=== PATIENT | female | born 2000 | race Caucasian/White ===

== ENCOUNTER 2022-12-10 08:00 | Outpatient (CLI) | payer OTHER ==
[2022-12-10 16:37] LABS: BILIRUBIN,URINE NEGATIVE (NEGATIVE); GLUCOSE, URINE (UA) NEGATIVE (NEGATIVE); KETONES,URINE (UA) NEGATIVE (NEGATIVE); LEUKOCYTE ESTERASE, URINE NEGATIVE (NEGATIVE); NITRITE,URINE NEGATIVE (NEGATIVE); OCCULT BLOOD,URINE NEGATIVE (NEGATIVE); PH,URINE 5.5 PH (5.0-7.5); PROTEIN,URINE NEGATIVE (NEGATIVE); UROBILINOGEN,URINE 0.2 (NORMAL) E.U./dL (NORMAL)
[2022-12-10 16:38] LABS: CLARITY,URINE CLEAR (CLEAR)
[2022-12-10 16:50] LABS: BACTERIA,URINE Rare /HPF (None Seen); MUCUS,URINE Few Strands; RBC,URINE 0-5 /HPF (0-5); SQUAMOUS EPITHELIAL CELL,UR RARE Squamous (<= Few); WBC,URINE 0-3 /HPF (0-5)
[2022-12-10 16:53] LABS: CRYSTALS,URINE 11-25 Uric Acid /LPF
[2022-12-10 20:01] LABS: BACTERIAL VAGINOSIS DNA POSITIVE (NEGATIVE); CANDIDA GLABRATA DNA NEGATIVE (NEGATIVE); CANDIDA GROUP DNA POSITIVE (NEGATIVE); CANDIDA KRUSEI DNA NEGATIVE (NEGATIVE); TRICHOMONAS VAGINALIS DNA NEGATIVE (NEGATIVE)
== END 2022-12-10 23:59 | disposition home or self-care (01) ==
LOC: LAB.WC 08:00
PROVIDERS: ATTEND Nurse Practitioner
DX: O99.891 Other specified diseases and conditions complicating pregnancy (principal); L29.8 Other pruritus
CPT/HCPCS: 81001; 81514; 87086

== ENCOUNTER 2022-12-18 12:27 | Outpatient (CLI) | payer OTHER ==
--- NOTE | 2022-12-18 16:25 | Ultrasound Report ---
PROCEDURE: OB First Trimester w/TV INDICATIONS: POSITIVE TEST OUTSIDE/PRIOR DATING DATA: Last menstrual period (LMP): 10/22/2022. LMP-based estimated date of delivery (TU): 07/29/2023. First dating scan (date and location): 02/17/2022. Estimated date of delivery (TU) from first dating scan: 07/26/2023. TECHNIQUE: Real-time scanning was performed of the fetus and maternal pelvic organs, with image documentation. Endovaginal scanning was also performed to better visualize the fetus and maternal ovaries. COMPARISON: None. FINDINGS: Intrauterine gestational sac present. Embryo: Single live intrauterine is identified with crown-rump length measuring 2.0 cm cor responding to 8 weeks 4 days. Heart rate: 173 bpm. Other: No perigestational fluid collection. Measurement variability in dating: +/- 4 weeks by LMP, +/- 7 days by mean sac diameter (use before 6 weeks gestation if crown-rump length not able to be measured), +/- 5 days by crown-rump length (6-12 weeks gestation). Maternal organs: Ovaries demonstrate left corpus luteal cyst measuring 1.8 x 1.8 x 1.4 cm. IMPRESSION: Single live intrauterine with ultrasound gestational age of 8 weeks 4 days. Recommend follow-up imaging at 20-22 weeks for dates and anatomy. Reviewed by: Yina Murillo MD on 12/18/2022 4:23 PM PDT Approved by: Yina Murillo MD on 12/18/2022 4:23 PM PDT Station ID: [id number]
== END 2022-12-18 12:28 | disposition home or self-care (01) ==
LOC: DI 12:27
PROVIDERS: ATTEND Nurse Practitioner
DX: Z34.81 Encounter for supervision of other normal pregnancy, first trimester (principal)

== ENCOUNTER 2022-12-19 08:00 | Outpatient (CLI) | payer OTHER ==
[2022-12-19 19:47] LABS: CHLAMYDIA TRACHOMATIS DNA NEGATIVE (NEGATIVE); NEISSERIA GONORRHOEAE DNA NEGATIVE (NEGATIVE)
[2022-12-19 22:11] LABS: BACTERIAL VAGINOSIS DNA NEGATIVE (NEGATIVE)
[2022-12-19 22:12] LABS: CANDIDA GLABRATA DNA NEGATIVE (NEGATIVE); CANDIDA GROUP DNA POSITIVE (NEGATIVE); CANDIDA KRUSEI DNA NEGATIVE (NEGATIVE); TRICHOMONAS VAGINALIS DNA NEGATIVE (NEGATIVE)
== END 2022-12-19 23:59 | disposition home or self-care (01) ==
LOC: LAB.WC 08:00
PROVIDERS: ATTEND Nurse Practitioner
DX: Z34.80 Encounter for supervision of other normal pregnancy, unspecified trimester (principal)
CPT/HCPCS: 81514; 87491; 87591; 87661

== ENCOUNTER 2022-12-24 10:11 | Outpatient (CLI) | payer OTHER ==
[2022-12-24 12:31] LABS: BASOPHILS % (AUTO) 0.3 %; EOSINOPHILS # (AUTO) 0.1 10^3/uL (0.0-0.7); EOSINOPHILS % (AUTO) 0.7 %; HCT - HEMATOCRIT 40.5 % (37.0-47.0); HGB - HEMOGLOBIN 13.2 g/dL (12.0-16.0); LYMPHOCYTES # (AUTO) 2.1 10^3/uL (1.5-3.5); MEAN CORPUSCULAR HEMOGLOBIN 28.1 pg (27.0-31.0); MEAN CORPUSCULAR HGB CONC 32.6 g/dL (32.0-36.0); MEAN CORPUSCULAR VOLUME 86.4 fL (81.0-99.0); MEAN PLATELET VOLUME 10.4 fL (7.9-10.8); MONOCYTES # (AUTO) 0.5 10^3/uL (0.0-1.0); MONOCYTES % (AUTO) 5.2 %; NEUTROPHILS # (AUTO) 6.2 10^3/uL (1.5-6.6); NEUTROPHILS % (AUTO) 69.7 %; PLT - PLATELET COUNT 291 10^3/uL (130-450); RED BLOOD COUNT 4.69 10^6/uL (4.20-5.40); RED CELL DISTRIBUTION WIDTH 13.1 % (12.0-15.0); WHITE BLOOD COUNT 8.9 x10^3/uL (4.8-10.8)
[2022-12-24 12:54] LABS: THYROID STIMULATING HORMONE 0.89 uIU/mL (0.34-5.60)
[2022-12-24 14:18] LABS: ESTIMATED AVERAGE GLUCOSE 94 mg/dL (70-100); HEMOGLOBIN A1c% 4.9 % (4.27-6.07)
[2022-12-25 05:13] LABS: HCV AB Non Reactive (Non Reactive)
[2022-12-25 07:10] LABS: HBsAG SCREEN Negative (Negative); RPR Non Reactive (Non Reactive)
[2022-12-25 12:09] LABS: VARICELLA-ZOSTER AB IGG 177 index (Immune >165)
[2022-12-28 00:07] LABS: HIV SCREEN 4TH GENERATION Non Reactive (Non Reactive)
== END 2022-12-24 10:12 | disposition home or self-care (01) ==
LOC: LAB.N 10:11
PROVIDERS: ATTEND Nurse Practitioner
DX: O98.819 Other maternal infectious and parasitic diseases complicating pregnancy, unspecified trimester (principal); B37.9 Candidiasis, unspecified; Z36.89 Encounter for other specified antenatal screening; Z86.39 Personal history of other endocrine, nutritional and metabolic disease
CPT/HCPCS: 36415; 83036; 84436; 84439; 84443; 84480; 84481; 85025; 86592; 86762; 86787; 86803; 86850; 86900; 86901; 87340; 87389

== ENCOUNTER 2023-03-10 13:58 | Outpatient (CLI) | payer OTHER ==
[2023-03-10 14:50] LABS: THYROID STIMULATING HORMONE 2.17 uIU/mL (0.34-5.60)
== END 2023-03-10 13:59 | disposition home or self-care (01) ==
LOC: LAB 13:58
PROVIDERS: ATTEND Obstetrics & Gynecology
DX: Z87.898 Personal history of other specified conditions (principal)
CPT/HCPCS: 36415; 84436; 84443; 84480

== ENCOUNTER 2023-03-11 13:52 | Outpatient (CLI) | payer OTHER ==
--- NOTE | 2023-03-11 19:44 | Ultrasound Report ---
PROCEDURE: OB Anatomy Scan INDICATIONS: SUPERVISION OF OUTSIDE/PRIOR DATING DATA: Last menstrual period (LMP): 10/22/2022. LMP-based estimated date of delivery (TU): 07/29/2023. First dating scan (date and location): 12/18/2022. Estimated date of delivery (TU) from first dating scan: 07/26/2023. The below data below was generated using the clinical TU of 07/29/2023 TECHNIQUE: Real-time scanning was performed of the fetus, with image documentation and biometric measurements. Endovaginal scanning: Not performed. COMPARISON: OB ultrasound 12/18/2022 FINDINGS: General: A single living intrauterine gestation is present. Presentation: Vertex Placenta: Placental position is anterior, without previa. Amniotic fluid index: 11.4 cm, within normal limits for gestational age. heart rate: 135 beats per minute. Maternal cervical canal: 3.9 cm long; normal length is 2.5 cm or more. biometrics: Biparietal diameter: 4.7 cm, 20 weeks 2 days, 64th percentile Head circumference: 17.7 cm, 20 weeks 2 days, 53rd percentile Abdominal circumference: 15.0 cm, 20 weeks 2 days, 53rd percentile Femur length: 3.3 cm, 18 weeks 6 days, 21st percentile Estimated gestational age from initial scan: 20 weeks 0 days Composite gestational age from present scan: 20 weeks 0 days Estimated weight and percentile: 341 g, 60th percentile Measurement variability in biometric dating: +/- 10 days from 12-20 weeks gestation, +/- 2 weeks from 20-30 weeks gestation, +/- 3 weeks at 30 weeks gestation or later. Anatomic survey: Neuro: Ventricles are normal at less than 10 mm. Cisterna magna is normal at 3-11 mm. Cerebellum i s normal in size and morphology. Nuchal skin fold: Normal at less than 6 mm between 14 and 20 weeks gestational age. Face: Nose and lips, facial profile are normal. Spine: No evidence for spina bifida. Heart: 4-chambered heart is present, with normal ventricular outflow tracts. Diaphragm: Diaphragm is intact. Stomach: Left-sided stomach is present. Kidneys: No hydronephrosis. Normal is less than 5 mm in 2nd trimester, less than 7 mm in 3rd trimester. Cord: 3 vessel cord has orthotopic insertion. Bladder: Normal in size. Extremities: All 4 extremities are visualized. IMPRESSION: 1.Single live intrauterine with appropriate interval growth. 2. anatomic survey is within normal limits. Reviewed by: Myron Ferreira MD on 03/11/2023 7:43 PM PST Approved by: Myron Ferreira MD on 03/11/2023 7:43 PM PST Station ID: [id number]
== END 2023-03-11 13:53 | disposition home or self-care (01) ==
LOC: DI 13:52
PROVIDERS: ATTEND Obstetrics & Gynecology
DX: O09.892 Supervision of other high risk pregnancies, second trimester (principal); Z3A.20 20 weeks gestation of pregnancy

== ENCOUNTER 2023-03-15 10:05 | Outpatient (CLI) | payer OTHER ==
[2023-03-18 20:08] LABS: THYROGLOBULIN ANTIBODY <1.0 IU/mL (0.0-0.9); THYROID PEROXIDASE (TPO) AB <9 IU/mL (0-34)
== END 2023-03-15 10:06 | disposition home or self-care (01) ==
LOC: LAB.N 10:05
PROVIDERS: ATTEND Obstetrics & Gynecology
DX: E05.90 Thyrotoxicosis, unspecified without thyrotoxic crisis or storm (principal)
CPT/HCPCS: 36415; 86376; 86800

== ENCOUNTER 2023-04-28 07:12 | Outpatient (CLI) | payer OTHER, MEDICAID ==
[2023-04-28 08:32] LABS: HCT - HEMATOCRIT 34.7 % (37.0-47.0); MEAN CORPUSCULAR HEMOGLOBIN 28.6 pg (27.0-31.0); MEAN CORPUSCULAR HGB CONC 31.7 g/dL (32.0-36.0); MEAN CORPUSCULAR VOLUME 90.4 fL (81.0-99.0); MEAN PLATELET VOLUME 9.3 fL (7.9-10.8); RED BLOOD COUNT 3.84 10^6/uL (4.20-5.40); RED CELL DISTRIBUTION WIDTH 13.7 % (12.0-15.0); WHITE BLOOD COUNT 11.9 x10^3/uL (4.8-10.8)
== END 2023-04-28 07:13 | disposition home or self-care (01) ==
LOC: LAB 07:12
PROVIDERS: ATTEND Obstetrics & Gynecology
DX: O09.891 Supervision of other high risk pregnancies, first trimester (principal); Z36.0 Encounter for antenatal screening for chromosomal anomalies
CPT/HCPCS: 36415; 82950; 85027

== ENCOUNTER 2023-05-14 08:00 | Outpatient (CLI) | payer OTHER, MEDICAID ==
[2023-05-14 21:40] LABS: CHLAMYDIA TRACHOMATIS DNA NEGATIVE (NEGATIVE); NEISSERIA GONORRHOEAE DNA NEGATIVE (NEGATIVE); TRICHOMONAS VAGINALIS DNA NEGATIVE (NEGATIVE)
== END 2023-05-14 23:59 | disposition home or self-care (01) ==
LOC: LAB.WC 08:00
PROVIDERS: ATTEND Obstetrics & Gynecology
DX: Z11.3 Encounter for screening for infections with a predominantly sexual mode of transmission (principal)
CPT/HCPCS: 87491; 87591; 87661

== ENCOUNTER 2023-05-22 08:00 | Outpatient (CLI) | payer OTHER, MEDICAID ==
[2023-05-22 17:22] LABS: INFLUENZA A- RESP PCR PANEL NOT DETECTED; INFLUENZA B - RESP PCR PANEL NOT DETECTED; RSV- RESP PCR PANEL NOT DETECTED; SARS-CoV-2 -RESP PCR PANEL NOT DETECTED
== END 2023-05-22 23:59 | disposition home or self-care (01) ==
LOC: LAB.N 08:00
PROVIDERS: ATTEND Registered Nurse
DX: J06.9 Acute upper respiratory infection, unspecified (principal); J04.0 Acute laryngitis; R07.0 Pain in throat
CPT/HCPCS: 87070; 87637

== ENCOUNTER 2023-06-03 23:12 | Outpatient (CLI) | payer OTHER, MEDICAID ==
[2023-06-03 23:36] VITALS: BP 117/69
[2023-06-04 00:18] LABS: BILIRUBIN,URINE NEGATIVE (NEGATIVE); GLUCOSE, URINE (UA) NEGATIVE (NEGATIVE); KETONES,URINE (UA) TRACE mg/dL (NEGATIVE); LEUKOCYTE ESTERASE, URINE NEGATIVE (NEGATIVE); NITRITE,URINE NEGATIVE (NEGATIVE); OCCULT BLOOD,URINE NEGATIVE (NEGATIVE); PH,URINE 5.5 PH (5.0-7.5); PROTEIN,URINE NEGATIVE (NEGATIVE); UROBILINOGEN,URINE 0.2 (NORMAL) E.U./dL (NORMAL)
[2023-06-04 00:24] LABS: CLARITY,URINE CLEAR (CLEAR)
[2023-06-04 00:31] LABS: BACTERIA,URINE Few /HPF (None Seen); MUCUS,URINE Few Strands; RBC,URINE 0-5 /HPF (0-5); SQUAMOUS EPITHELIAL CELL,UR MANY Squamous (<= Few); WBC,URINE 0-3 /HPF (0-5)
--- NOTE | 2023-06-04 00:38 | PROVIDER PROGRESS NOTE ---
- HPI Chief Complaint: Labor Current : 22 yo with second child. first baby just turned one this week. 32 weeks. presents with 3 days of diarrhea, contractions at home that were very frequent. they have slowed down now that she has been here. [place] was told to come in. She wonders if she is dehydrated. last week she was seen in urgent care for laryngitis. no gi sx then. increased her sertraline dose from 100 to 150 yesterday. had contractions with her first child at 34 weeks. delivered at 37 weeks, induced for presumed cholestasis but bile acids were normal. Vital Signs Temperature 98.2 F 06/03/23 23:28 Heart Rate 85 06/03/23 23:28 Respiratory Rate 17 06/03/23 23:28 Blood Pressure 117/69 06/03/23 23:28 Temperature 98.2 F 06/03/23 23:28 Heart Rate 85 06/03/23 23:28 Respiratory Rate 17 06/03/23 23:28 Blood Pressure 117/69 06/03/23 23:28 O2 Saturation If not protocol: Oxygen Flow, liters/minute - Exam animated, very clear about her symptoms. abdomen not tender cervix very posterior, closed high. baby's head palpable in anterior lower uterine segment/vagina extremities not tender. - Procedures OB Procedure Performed: NST Diagnosis/Indication for NST: Other ( contractions.) NST Procedure: Reactive for of 32 weeks gestation or more. NST tracing contains at least two heart rate accelerations that are at least 15 beats per minute above the baseline rate and lasting at least 15 seconds from onset to return to baseline within a twenty minute period. Service Date of procedure: 06/04/23 Findings: reactive nst not in labor. minimal contractions on monitor. - Plan Plan: pateint not in labor. seems fine now and ready to go home. is dehydrated. encouraged to drink more water. She feels she can do this. etiology of diarrhea is unclear. no one else is sick. going about 5 times a day but only a small amount. will let us know if it gets worse.
== END 2023-06-04 00:45 | disposition home or self-care (01) ==
LOC: WFO 23:12 → FBP 23:15 → WFO 06-04 00:45
PROVIDERS: ATTEND Obstetrics & Gynecology
DX: O47.03 False labor before 37 completed weeks of gestation, third trimester (principal); O99.283 Endocrine, nutritional and metabolic diseases complicating pregnancy, third trimester; E86.0 Dehydration; O99.891 Other specified diseases and conditions complicating pregnancy; R19.7 Diarrhea, unspecified; Z3A.32 32 weeks gestation of pregnancy; Z79.899 Other long term (current) drug therapy
CPT/HCPCS: 59025; 81001; 82731; 87086; 99213

== ENCOUNTER 2023-06-18 08:48 | Observation (INO) | payer OTHER, MEDICAID ==
[2023-06-18] MEDS: LACTATED RINGERS 1,000 ML IV ONE (08:48)
[2023-06-18] MEDS ORDERED: ONDANSETRON 4 MG/2 ML VIAL IVP PRN (08:53)
[2023-06-18] MEDS: SODIUM CHLORIDE FLUSH 0.9% 10 ML SYRINGE IVP PRN (08:59)
[2023-06-18 09:11] LABS: BASOPHILS % (AUTO) 0.2 %; EOSINOPHILS # (AUTO) 0.1 10^3/uL (0.0-0.7); EOSINOPHILS % (AUTO) 0.3 %; HCT - HEMATOCRIT 35.2 % (37.0-47.0); HGB - HEMOGLOBIN 11.8 g/dL (12.0-16.0); LYMPHOCYTES # (AUTO) 2.3 10^3/uL (1.5-3.5); MEAN CORPUSCULAR HEMOGLOBIN 28.6 pg (27.0-31.0); MEAN CORPUSCULAR HGB CONC 33.5 g/dL (32.0-36.0); MEAN CORPUSCULAR VOLUME 85.4 fL (81.0-99.0); MEAN PLATELET VOLUME 10.3 fL (7.9-10.8); MONOCYTES # (AUTO) 0.8 10^3/uL (0.0-1.0); MONOCYTES % (AUTO) 5.2 %; NEUTROPHILS # (AUTO) 12.7 10^3/uL (1.5-6.6); NEUTROPHILS % (AUTO) 78.9 %; PLT - PLATELET COUNT 235 10^3/uL (130-450); RED BLOOD COUNT 4.12 10^6/uL (4.20-5.40); RED CELL DISTRIBUTION WIDTH 12.8 % (12.0-15.0); WHITE BLOOD COUNT 16.1 x10^3/uL (4.8-10.8)
[2023-06-18 09:39] LABS: ALBUMIN 3.4 g/dL (3.2-5.5); BILIRUBIN,TOTAL 0.3 mg/dL (0.2-1.0); CALCIUM 9.3 mg/dL (8.5-10.3); CREATININE 0.5 mg/dL (0.6-1.3); POTASSIUM 3.9 mmol/L (3.5-4.5); TOTAL PROTEIN 6.7 g/dL (6.4-8.9)
[2023-06-18 09:40] LABS: CALCIUM 9.3 mg/dL (8.5-10.3); MAGNESIUM 1.4 mg/dL (1.7-2.3)
[2023-06-18 11:10] LABS: BILIRUBIN,URINE NEGATIVE (NEGATIVE); GLUCOSE, URINE (UA) NEGATIVE (NEGATIVE); KETONES,URINE (UA) NEGATIVE (NEGATIVE); LEUKOCYTE ESTERASE, URINE NEGATIVE (NEGATIVE); NITRITE,URINE NEGATIVE (NEGATIVE); OCCULT BLOOD,URINE NEGATIVE (NEGATIVE); PH,URINE 7.5 PH (5.0-7.5); PROTEIN,URINE NEGATIVE (NEGATIVE); UROBILINOGEN,URINE 0.2 (NORMAL) E.U./dL (NORMAL)
[2023-06-18 11:15] LABS: CLARITY,URINE CLEAR (CLEAR)
[2023-06-18 11:24] LABS: BACTERIA,URINE Few /HPF (None Seen); RBC,URINE 0-5 /HPF (0-5); SQUAMOUS EPITHELIAL CELL,UR MOD Squamous (<= Few); WBC,URINE 0-3 /HPF (0-5)
[2023-06-18] MEDS: MAGNESIUM SULFATE 2 GRAM 2 GM/50 ML BAG IV ONE ×2 (11:47→13:00)
[2023-06-18] MEDS ORDERED: MAGNESIUM SULFATE IN WATER 20 GM/500 ML IV.SOLN IV SCH (12:00)
[2023-06-18 13:53] VITALS: BP 117/65; O2SAT 100
--- NOTE | 2023-06-18 14:48 | HISTORY & PHYSICAL EXAMINATION ---
Admit History - Visit Reason Visit Reason: Other (contractions, shivering, tachycardia, tachypnea) - : 2 Parity: 1 Premature: 0 Ectopic: 0 : 0 Care: positive: [facility] Complications This : positive: None - Other Maternal History Other Maternal History: CC: contractions, shaking, tachycardia, tachypnea. vomited once after arrival. not prior. Although some nausea at home. was angel during the night but did not feel like she was in labor. OB visit 06/11/23 HPI: Pt comes to the clinic for a follow up at 33.1 weeks. Some contractions last week that sent her to the ER but has since settled. No discharge with contractions. Still a bit of back pain and "lightning crotch." Asking for a letter for her mother in law with TU so MIL can take time off work and come help. .............................................Ana Maria Abel CMA ([facility]) June 11, 2023 10:03 AM Allergies: * GLUTEN (Critical) Medications: Meds Reviewed: Done cyclobenzaprine 5 mg tablet (cyclobenzaprine) TAKE 1- 2 TABLETS BY MOUTH THREE TIMES DAILY NEEDED FOR MUSCLE SPASM * ELECTRIC BREAST PUMP Use 1 device as directed as directed USE TO EXPRESS MILK ACCORDING TO BABY'S NEEDS Z39.1 TU 07/29/2023 sertraline 100 mg tablet (sertraline) Take 1 tablet by mouth once a day Can start with 1/2 tablet once a day an increase to 1 tablet after one week. * folic acid 28-800 mg-mcg tablet ([id number] fumarate-fa) Take 1 tablet by mouth once a day Problems: Sore throat (ICD-462) (HJF20-J85.9) Upper respiratory infection (URI), viral (ICD-465.9) (IKB63-E48.9) Laryngitis, acute (ICD-464.00) (KZK79-Z66.0) Bilateral hip joint pain (HUP84-Y10.551) Screening examination for venereal disease (ICD-V74.5) (QYS19-O12.3) Hyperthyroidism (ICD-242.90) (EIJ53-D49.90) Type O blood, Rh positive (ICD-V68.89) (AGB08-V10.40) Rubella non-immune (ICD-V49.89) (WID45-X31.9) Supervision of other high risk , first trimester (ICD-V23.89) (ICD10- O09.891) Hx of pituitary tumor (ICD-V12.29) (OAW16-G28.898) Hyperprolactinemia (ICD-253.1) (CZH21-L82.1) Past Medical History: Hyperprolactinemia- tumor diagnosed at age 16 Past Surgical History: Unremarkable Vital Signs: Patient Profile: 22 Years Old Female Height: 62.5 inches Weight: 144 pounds BMI: 26.01 BP sittin / 60 Cuff size: regular Vitals Entered By: Ana Maria SIERRA (June 11, 2023 10:04 AM) Meds Reviewed: Done Allergies Reviewed: Done Flowsheet View for Follow-up Visit Estimated weeks of gestation: 33 02/23 Weight: 144 Blood pressure: 118 / 60 Fundal height: 32.5 FHR: 130 Vaginal bleeding: no Vaginal discharge: no activity: yes Labor symptoms: no position: vertex Taking vits? Y Smoking: n/a Next visit: 2 wk Comment: Mood greatly improved on higher dose. Will continue until next visit and reassess. Letter given to patient for her mother to have leave to support her during . Encouraged to stay active in third trimester. Spending a lot of time with her son as he is learning to walk. -JAW LMP: 10/22/2022 TU by LMP: 07/29/2023 US: 12/18/2022 Final TU: 07/29/2023 ANC c/b: prior preg c/w SxS choleystasis (no increase in bile acids), was IOL 37w4d for itching that wasn't choley -- resolved with cortisone cream - Baby boy 6#9oz 1. prolactinoma - Briefly took cabergoline for < 1 month, last MRI July 2021 - prior to cabergoline, prior to being in August 2032 - no symptoms. 2. close interval - iron supplements self DC - encouraged self-care 3. 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 4. TSH wnl, T4 / T3 increased with initial labs -Normal TSH in second trimester. 5. Depression -h/o PTSD, suicide attempt at 16. Stopped counselling 2 years ago, restarted recently. -Mood precautions, plan in place if mood worsens. -Mood greatly improved with sertraline and counseling. Currently on 150mg. Pre- Weight: 135lb BMI: 24.57 Blood type: O+ Rh: Postitive Antibody: Negative CBC: PLT 291 HCT: 40.5 HGB 13.2 RUB: NON immune VZV: Immune HBsAg: Negative HepC: NR RPR/AB-EIA: NR HIV: NR PAP: normal (12/04/21 in [place])requested 02/11 GC/CT: Negative HSV: denies Genetic testing: Quad screen Normal Covid: vaccinated Flu:completed this season FAS: Placenta: Anterior without previa, 3VC, 341g, 60%. 50gm OGCT: 94 TDAP: 05/13 Breast Pump:05/13 3rd trimester H/H 11.0/34.7 PLT 201 GBS: sent today Delivery plan: Contraception:Considering partner vasectomy versus control. Unsure what she would use. Gender ID Identifies as Female P: 1 T: 1 L: 1 LMP: 10/22/2022 EDC: 07/29/2023 Height: 62.5 (05/28/2023 10:00:59 AM) Weight: 144 Weight (pre-): 135 (12/10/2022 1:31:58 PM) Chlamydia: NEGATIVE (05/14/2023 11:45:00 AM) Blood Type: O POS^O POSITIVE^L (12/24/2022 10:15:00 AM) Last Antibody Screen: NEGATIVE (12/24/2022 10:15:00 AM) Is pt sexually active? yes Chlamydia: NEGATIVE (05/14/2023 11:45:00 AM) RPR: Non Reactive (12/24/2022 10:15 - HPI Diagnosis/Indication for NST: Other ( contractions.) Current EDU 07/29/23 Gestation 34 Weeks and 1 Days 2 Para 1 Vital Signs Temperature 98.4 F 06/18/23 08:50 Heart Rate 128 H 06/18/23 08:50 Respiratory Rate 26 H 06/18/23 08:50 Blood Pressure 94/61 06/18/23 08:50 Temperature 98.2 F 06/18/23 12:40 Heart Rate 92 06/18/23 12:40 Respiratory Rate 15 06/18/23 12:40 Blood Pressure 117/65 06/18/23 12:40 O2 Saturation 100 06/18/23 12:40 If not protocol: Oxygen Flow, liters/minute - NST Procedure NST Procedure Start Date 06/18/23 Start Time 08:30 Stop Time 09:10 Vibroacoustic Stimulation Used No Patient States Movement Yes - Results and Plan Findings/Impression: Reactive for of 32 weeks gestation or more. NST tracing contains at least two heart rate accelerations that are at least 15 beats per minute above the baseline rate and lasting at least 15 seconds from onset to return to baseline within a twenty minute period. Plan: observe for resolution of contractions. Meds/Allgy - Home Medications Home Medications: Ambulatory Orders Medication Instructions Recorded Confirmed Magnesium Oxide 400 mg PO BID #180 tablet 06/18/23 - Allergies Allergies/Adverse Reactions: Allergies Allergy/AdvReac Type Severity Reaction Status Date / Time No Known Drug Allergies Allergy Verified 06/18/23 09:28 Review of Systems - Constitutional Constitutional: reports: Fatigue, Other (Shaking). denies: Fever, Chills - Gastrointestinal Gastrointestinal: denies: Constipation - Genitourinary Genitourinary: denies: Dysuria - Neurological Neurological: reports: Dizziness. denies: Headache Physical - Abdominal Exam Vital Signs: Temp Pulse Resp BP Pulse Ox O2 Flow Rate 98.2 F 92 15 117/65 100 06/18/23 12:40 06/18/23 12:40 06/18/23 12:40 06/18/23 12:40 06/18/23 12:40 Contraction Frequency (min/apart): up to q4 min Contraction Intensity: positive: Moderate Uterine Resting Tone: positive: Soft - Monitoring Strip Review: positive: Category I - Presentation Presentation: positive: Vertex - Vaginal Exam Membranes: positive: Membranes intact Dilation (in cm): 0 Effacement (%): 70 Station: positive: -3, Ballotable (not engaged. does not at all feel that vertex is engaged.) Cervical Position: positive: Posterior - Speculum Exam Speculum Exam Performed: positive: No - Other Notes Labor Progress Note/Additional Text: not in labor but contractions are painful. Plan for Labor - Plan For Labor I expect patient to be DC'd or transferred within 96 hours.: Yes Plan for Labor: admit for observation, give magnesium since it is low and also will help cont ractions. first 2 grams given and still angel so will give 2 more grams. Will also check thyroid given symptoms and her history.
[2023-06-18 15:35] LABS: THYROID STIMULATING HORMONE 1.74 uIU/mL (0.34-5.60)
[2023-06-18 16:14] LABS: BACTERIAL VAGINOSIS DNA NEGATIVE (NEGATIVE); CANDIDA GLABRATA DNA NEGATIVE (NEGATIVE); CANDIDA GROUP DNA POSITIVE (NEGATIVE); CANDIDA KRUSEI DNA NEGATIVE (NEGATIVE); TRICHOMONAS VAGINALIS DNA NEGATIVE (NEGATIVE)
[2023-06-18 16:57] LABS: CHLAMYDIA TRACHOMATIS DNA NEGATIVE (NEGATIVE); NEISSERIA GONORRHOEAE DNA NEGATIVE (NEGATIVE)
--- NOTE | 2023-06-18 21:13 | DISCHARGE SUMMARY ---
"Discharge Summary Admit Date: 06/18/23 Discharge Date: 06/18/23 Discharging Provider: Minoo Navas MD Code Status: Attempt Resuscitation Condition at Discharge: Good Discharge Disposition: 01 Home, Self Care - DIAGNOSES Admission Diagnoses: dizziness, shaking, premature contractions without labor. at 34 weeks. Discharge Diagnoses with Status of Each Condition: contractions and all other symptoms resolved. no labor. hypomagnesiumia - magnesium replaced 4 gm. - HPI History of Present Illness: pateint presents to her job today and did not feel well. tachycardia, tachypnea, shaking. some contractions. came to [facility] for evaluation. 34 weeks - CONSULTS | PROCEDURES Procedures: iv hydration. monitoring. - HOSPITAL COURSE Hospital Course: she was watched, hydrated. magnesium 2 gm and then 2 more grams given for Magnesium level of 1.4. finally contractions, shaking and all other symptoms st opped. She was discharged home. Cervix on second exam was still closed. - ALLERGIES Allergies/Adverse Reactions: Allergies Allergy/AdvReac Type Severity Reaction Status Date / Time No Known Drug Allergies Allergy Verified 06/18/23 09:28 - MEDICATIONS Home Medications: Ambulatory Orders Medication Instructions Recorded Confirmed Magnesium Oxide 400 mg PO BID #180 tablet 06/18/23 - PHYSICAL EXAM AT DISCHARGE General Appearance: positive: No acute distress Respiratory: positive: No respiratory distress Cardiovascular: positive: Regular rate & rhythm Abdomen: positive: Non-tender Skin: positive: Color nml Extremities: positive: Non-tender Neurologic/Psychiatric: positive: Oriented x3 Physical Exam Other/Comments: cervix closed, unlabored. posterior. - LABS Result Diagrams: 06/18/23 08:45 06/18/23 08:45 Other Lab Results: TSH And free T4 are normal. + yeast. no bv, gc, chlamydia. no urine infec tion. - SEPSIS Current Stage of Sepsis: Ruled out Sepsis Criteria: Recorded Heart Rate greater than 90 bpm, Recorded Respiratory Rate greater than 20, WBC count greater than 12,000 or less than 4000 - FOLLOW UP Follow Up: next week as scheduled. - TIME SPENT Time Spent in Discharge (Minutes): 45"
== END 2023-06-18 15:10 | disposition home or self-care (01) ==
LOC: WFO 08:48 → FBP 08:50 → WFO 14:33 → FBP 14:34
PROVIDERS: ADMIT Obstetrics & Gynecology; ATTEND Obstetrics & Gynecology
DX: O60.03 Preterm labor without delivery, third trimester (principal); O99.283 Endocrine, nutritional and metabolic diseases complicating pregnancy, third trimester; E83.42 Hypomagnesemia; O99.343 Other mental disorders complicating pregnancy, third trimester; F32.A Depression, unspecified; Z3A.34 34 weeks gestation of pregnancy
CPT/HCPCS: 36415; 59025; 80053; 81001; 81514; 82310; 83735; 84439; 84443; 85025; 86850; 86900; 86901; 87491; 87591; 87797; 99215; G0378; 87081; 87086; 87661

== ENCOUNTER 2023-06-23 14:33 | Outpatient (CLI) | payer OTHER, MEDICAID ==
[2023-06-23 15:44] LABS: BASOPHILS % (AUTO) 0.3 %; EOSINOPHILS # (AUTO) 0.1 10^3/uL (0.0-0.7); EOSINOPHILS % (AUTO) 0.8 %; HCT - HEMATOCRIT 33.9 % (37.0-47.0); HGB - HEMOGLOBIN 10.9 g/dL (12.0-16.0); LYMPHOCYTES # (AUTO) 2.3 10^3/uL (1.5-3.5); LYMPHOCYTES % (AUTO) 15.4 %; MEAN CORPUSCULAR HEMOGLOBIN 28.5 pg (27.0-31.0); MEAN CORPUSCULAR HGB CONC 32.2 g/dL (32.0-36.0); MEAN CORPUSCULAR VOLUME 88.5 fL (81.0-99.0); MEAN PLATELET VOLUME 9.8 fL (7.9-10.8); MONOCYTES # (AUTO) 0.9 10^3/uL (0.0-1.0); MONOCYTES % (AUTO) 5.9 %; NEUTROPHILS # (AUTO) 11.1 10^3/uL (1.5-6.6); NEUTROPHILS % (AUTO) 75.6 %; PLT - PLATELET COUNT 219 10^3/uL (130-450); RED BLOOD COUNT 3.83 10^6/uL (4.20-5.40); RED CELL DISTRIBUTION WIDTH 13.1 % (12.0-15.0); WHITE BLOOD COUNT 14.7 x10^3/uL (4.8-10.8)
[2023-06-23 15:56] LABS: ALBUMIN 3.3 g/dL (3.2-5.5); ALBUMIN/GLOBULIN RATIO 1.1 (1.0-2.2); BILIRUBIN,TOTAL 0.2 mg/dL (0.2-1.0); CALCIUM 9.3 mg/dL (8.5-10.3); CREATININE 0.5 mg/dL (0.6-1.3); POTASSIUM 4.4 mmol/L (3.5-4.5); TOTAL PROTEIN 6.3 g/dL (6.4-8.9)
[2023-06-23 16:36] LABS: FERRITIN 6.2 ng/mL (11.0-306.8)
[2023-06-23] MEDS: FERRIC GLUCONATE 125 MG in SODIUM CHLORIDE 0.9% 100ML 100 ML IV ONE (17:36)
--- NOTE | 2023-06-23 18:03 | PROVIDER PROGRESS NOTE ---
- HPI Chief Complaint: Other (22yo at 34.6w sent from office when she called not feeling well. She reports dizziness, increased heart rate, tingling in fingers. She was seen in ED for similar concerns a couple times. She was advised to take magnesium after last week's visit. Also feels occasional back pain, cramping.) Current : Vital Signs Temperature 98.4 F 06/23/23 15:01 Temperature 98.4 F 06/23/23 15:01 Heart Rate Respiratory Rate Blood Pressure O2 Saturation If not protocol: Oxygen Flow, liters/minute - Procedures OB Procedure Performed: NST Diagnosis/Indication for NST: labor NST Procedure: NST Procedure Start Time 08:30 Stop Time 09:10 EFM: 140s, moderate variability, positive 15x15 accelerations, no decelerations [place]: no contractions NST reactive/Cat 1 Performed and read 06/23/23 Service Date of procedure: 06/23/23 - Plan Plan: 22yo at 34.6w with iron deficiency anemia - NST reactive - Not in labor - She has been taking vitamins and iron supplements this . Offered iron infusion today as she has required ED evaluation for similar symptoms. Iron infusion complete today, tolerated well. - Discharge to home, follow as scheduled 06/24
== END 2023-06-23 18:50 | disposition home or self-care (01) ==
LOC: WFO 14:33 → FBP 14:34 → WFO 18:50
PROVIDERS: ATTEND Obstetrics & Gynecology
DX: O99.013 Anemia complicating pregnancy, third trimester (principal); D50.9 Iron deficiency anemia, unspecified; Z3A.34 34 weeks gestation of pregnancy; O99.891 Other specified diseases and conditions complicating pregnancy; M54.9 Dorsalgia, unspecified; R25.2 Cramp and spasm
CPT/HCPCS: 36415; 59025; 80053; 82728; 85025; 99215; J2916; 96374

== ENCOUNTER 2023-06-29 09:37 | Outpatient (CLI) | payer OTHER, MEDICAID ==
[2023-06-29 09:56] VITALS: BP 133/66
[2023-06-29 10:41] VITALS: O2SAT 98
--- NOTE | 2023-06-29 19:50 | PROVIDER PROGRESS NOTE ---
- HPI Chief Complaint: Labor Current : Current EDU 07/29/23 Gestation 35 Weeks and 5 Days 2 Para 1 Vital Signs Temperature 98.2 F 06/29/23 09:45 Heart Rate 101 H 06/29/23 09:45 Respiratory Rate 14 06/29/23 09:45 Blood Pressure 133/66 H 06/29/23 09:45 Temperature 98.2 F 06/29/23 09:50 Heart Rate 101 H 06/29/23 09:50 Respiratory Rate 14 06/29/23 09:50 Blood Pressure 133/66 H 06/29/23 09:50 O2 Saturation 98 06/29/23 09:50 If not protocol: Oxygen Flow, liters/minute - Exam abdomen not tender. no distress - Procedures OB Procedure Performed: NST Diagnosis/Indication for NST: labor NST Procedure: NST Procedure Start Date 06/29/23 Start Time 10:22 Stop Time 10:50 Vibroacoustic Stimulation Used No Patient States Movement pt states decreased FM Service Date of procedure: 06/29/23 Findings: Reactive for of less than 32 weeks gestation. NST tracing contains at least two heart rate accelerations that are at least 10 beats per minute above the baseline rate and lasting at least 10 seconds from onset to return to baseline within a twenty minute period. - Plan Plan: patient feeling. no more contractions. feeling baby moving now. discharge home. f/u as scheduled.
== END 2023-06-29 11:28 | disposition home or self-care (01) ==
LOC: WFO 09:37 → FBP 09:38 → WFO 11:28
PROVIDERS: ATTEND Obstetrics & Gynecology
DX: O36.8130 Decreased fetal movements, third trimester, not applicable or unspecified (principal); Z3A.35 35 weeks gestation of pregnancy
CPT/HCPCS: 59025; 99213

== ENCOUNTER 2023-07-04 08:00 | Outpatient (CLI) | payer OTHER, MEDICAID | END 2023-07-04 23:59 | disposition home or self-care (01) | LOC: LAB.WC 08:00 | PROVIDERS: ATTEND Obstetrics & Gynecology | DX: Z36.85 Encounter for antenatal screening for Streptococcus B (principal) | CPT/HCPCS: 87797 ==

== ENCOUNTER 2023-07-07 11:30 | Outpatient (CLI) | payer OTHER, MEDICAID ==
[2023-07-07 12:14] LABS: BASOPHILS % (AUTO) 0.3 %; EOSINOPHILS # (AUTO) 0.1 10^3/uL (0.0-0.7); EOSINOPHILS % (AUTO) 0.5 %; HCT - HEMATOCRIT 34.7 % (37.0-47.0); HGB - HEMOGLOBIN 10.9 g/dL (12.0-16.0); MEAN CORPUSCULAR HEMOGLOBIN 27.7 pg (27.0-31.0); MEAN CORPUSCULAR HGB CONC 31.4 g/dL (32.0-36.0); MEAN CORPUSCULAR VOLUME 88.3 fL (81.0-99.0); MEAN PLATELET VOLUME 10.3 fL (7.9-10.8); MONOCYTES # (AUTO) 0.8 10^3/uL (0.0-1.0); MONOCYTES % (AUTO) 6.6 %; NEUTROPHILS # (AUTO) 8.5 10^3/uL (1.5-6.6); NEUTROPHILS % (AUTO) 73.9 %; PLT - PLATELET COUNT 214 10^3/uL (130-450); RED BLOOD COUNT 3.93 10^6/uL (4.20-5.40); RED CELL DISTRIBUTION WIDTH 13.9 % (12.0-15.0); WHITE BLOOD COUNT 11.5 x10^3/uL (4.8-10.8)
[2023-07-07 12:30] LABS: CREATININE,URINE 60.2 mg/dL; PROTEIN/CREATININE RATIO,URINE 0.3 (<=0.2)
[2023-07-07 12:31] LABS: ALBUMIN 3.3 g/dL (3.2-5.5); ALBUMIN/GLOBULIN RATIO 1.1 (1.0-2.2); ALKALINE PHOSPHATASE 174 IU/L (42-121); ALT ALANINE AMINOTRANSFERASE 6 IU/L (10-60); AST ASPARTATE AMINOTRANSFERASE 11 IU/L (10-42); BILIRUBIN,TOTAL 0.3 mg/dL (0.2-1.0); BUN - BLOOD UREA NITROGEN 7 mg/dL (6-20); CALCIUM 9.6 mg/dL (8.5-10.3); CARBON DIOXIDE - CO2 23 mmol/L (21-32); CHLORIDE 109 mmol/L (101-111); CREATININE 0.7 mg/dL (0.6-1.3); GFR - MDRD 105 (>89); GLUCOSE 83 mg/dL (74-104); IONIZED CALCIUM IF INDICATED NO; POTASSIUM 4.6 mmol/L (3.5-4.5); SODIUM 136 mmol/L (135-145); TOTAL PROTEIN 6.3 g/dL (6.4-8.9)
[2023-07-07] MEDS: ONDANSETRON ODT 4 MG TABLET TL PRN (12:59)
[2023-07-07 16:44] VITALS: BP 124/71
--- NOTE | 2023-07-07 16:54 | PROVIDER PROGRESS NOTE ---
- HPI Chief Complaint: Other (Preeclampsia evaluation) Current : Current EDU 07/29/23 Gestation 36 Weeks and 6 Days 2 Para 1 Vital Signs Temperature 98.2 F 07/07/23 11:39 Heart Rate 100 07/07/23 11:39 Respiratory Rate 16 07/07/23 11:39 Blood Pressure 127/71 07/07/23 11:39 Temperature 98.2 F 07/07/23 11:39 Heart Rate 100 07/07/23 11:39 Respiratory Rate 16 07/07/23 11:39 Blood Pressure 124/71 07/07/23 16:00 O2 Saturation If not protocol: Oxygen Flow, liters/minute Skye Toro is a 22 yo at 36w6d who presents from the office for preeclampsia evaluation. She came to the offfice today for increase swelling and headache this morning. In clinic, was found to have a mild range blood pressure. Skye reports a mild headache, declines any tylenol for it. No vision changes. She has had some pain in her upper abdomen which she attributes to babies movement. Reports irregular tightening, no regular ctx. Denies lof, vb. + fm. - Exam Gen: NAD Chest: non labored respirations Abd: soft, gravid, non tender. EFW [id number] Ext: trace LE edema SVE 2/50/-2 Bedside US confirmed cephalic presentation, grossly adequate appearing amniotic fluid with DVP of 6cm. - Procedures OB Procedure Performed: NST Diagnosis/Indication for NST: Gestational Hypertension NST Procedure: NST Procedure Start Date 07/07/23 Start Time 11:41 Stop Time 12:20 Vibroacoustic Stimulation Used No Patient States Movement Yes Service Date of procedure: 07/07/23 Findings: Reactive, Category 1 - Plan Plan: A/P: 22 yo at 36w6d with elevated blood pressures, meeting criteria for gestational hypertension. She has had a mild headache for which she declines any treatment. Labs normal, no severe features of preeclampsia at present. Intermittent mildly elevated blood pressures noted in triage. I discussed with her recommendation for induction of labor at 37wk in the setting of gestational hypertension and she does agree to proceed. She will plan to return this evening to start induction of labor. Consent or induction of labor was reviewed and signed.
== END 2023-07-07 16:30 | disposition home or self-care (01) ==
LOC: WFO 11:30 → FBP 11:31 → WFO 16:30
PROVIDERS: ATTEND Obstetrics & Gynecology
DX: O14.03 Mild to moderate pre-eclampsia, third trimester (principal); Z3A.36 36 weeks gestation of pregnancy
CPT/HCPCS: 36415; 59025; 80053; 82570; 84156; 85025; 99215; Q0162

== ENCOUNTER 2023-07-07 22:59 | Inpatient (IN) | payer OTHER, MEDICAID ==
[2023-07-07] MEDS ORDERED: TRANEXAMIC ACID IN NACL 1,000 MG/100 ML BAG IV PRN (23:12)
[2023-07-07] MEDS ORDERED: miSOPROStoL 200 MCG TABLET BC PRN (23:12)
[2023-07-07] MEDS ORDERED: lidocaine 1% 20 ML MDV ID PRN (23:12)
[2023-07-07] MEDS ORDERED: METHYLERGONOVINE 0.2 MG/ML VIAL IM PRN (23:12)
[2023-07-07] MEDS ORDERED: OXYTOCIN 10 UNIT/ML VIAL IM PRN (23:12)
[2023-07-07] MEDS ORDERED: SODIUM CHLORIDE FLUSH 0.9% 10 ML SYRINGE IVP PRN (23:12)
[2023-07-07] MEDS ORDERED: CARBOPROST TROMETHAMINE 250 MCG/ML VIAL IM PRN (23:12)
[2023-07-07] MEDS ORDERED: OXYTOCIN/SODIUM CHLORIDE 500 ML IV PRN (23:12)
[2023-07-07] MEDS ORDERED: miSOPROStoL 100 MCG TABLET ONE (23:58)
[2023-07-08] MEDS: miSOPROStoL 100 MCG TABLET BC SCH
[2023-07-08] MEDS ORDERED: SODIUM CHLORIDE FLUSH 0.9% 10 ML SYRINGE IVP SCH (01:00)
--- NOTE | 2023-07-08 06:46 | HISTORY & PHYSICAL EXAMINATION ---
Admit History - Visit Reason Visit Reason: Other (Induction of labor for preeclampsia without severe features.) - : 2 Parity: 1 Premature: 0 Ectopic: 0 : 0 Care: positive: [facility] Smoking Status: Never smoker - Other Maternal History Other Maternal History: Skye Toro is a 22 yo who presents for induction of labor for preeclampsia without severe features. Allergies: Allergies Reviewed: Done * GLUTEN (Critical) Medications: Meds Reviewed: Done Clotrimazole-7 1% cream (clotrimazole) Take 1 applicatorful into vagina once a day cyclobenzaprine 5 mg tablet (cyclobenzaprine) TAKE 1- 2 TABLETS BY MOUTH THREE TIMES DAILY NEEDED FOR MUSCLE SPASM * ELECTRIC BREAST PUMP Use 1 device as directed as directed USE TO EXPRESS MILK ACCORDING TO BABY'S NEEDS Z39.1 TU 07/29/2023 sertraline 100 mg tablet (sertraline) Take 1 tablet by mouth once a day Can start with 1/2 tablet once a day an increase to 1 tablet after one week. * folic acid 28-800 mg-mcg tablet ([id number] fumarate-fa) Take 1 tablet by mouth once a day Problems: screening for streptococcus B (ICD-V28.6) (ZIZ45-S26.85) Sore throat (ICD-462) (YDV16-M08.9) Upper respiratory infection (URI), viral (ICD-465.9) (UHN54-E53.9) Laryngitis, acute (ICD-464.00) (PRD10-A34.0) Bilateral hip joint pain (ZJK12-L90.551) Screening examination for venereal disease (ICD-V74.5) (YAD89-Q63.3) Hyperthyroidism (ICD-242.90) (TJD85-D88.90) Type O blood, Rh positive (ICD-V68.89) (YVI69-S36.40) Rubella non-immune (ICD-V49.89) (KTC73-D05.9) Supervision of other high risk , first trimester (ICD-V23.89) (ICD10- O09.891) Hx of pituitary tumor (ICD-V12.29) (MYS72-C78.898) Hyperprolactinemia (ICD-253.1) (WWB51-H09.1) Past Medical History: Hyperprolactinemia- tumor diagnosed at age 16 Past Surgical History: Unremarkable Risk Factors-CCC: Smoked Tobacco Use: Never smoker Smokeless Tobacco Use: Never Vaping / e-cigarette use: Never Passive Smoke Exposure: no Alcohol Use: no Drug Use: no Marijuana Use: no LMP: 10/22/2022 TU by LMP: 07/29/2023 US: 12/18/2022 Final TU: 07/29/2023 ANC c/b: prior preg c/w SxS choleystasis (no increase in bile acids), was IOL 37w4d for itching that wasn't choley -- resolved with cortisone cream - Baby boy 6#9oz 1. prolactinoma - Briefly took cabergoline for < 1 month, last MRI July 2021 - prior to cabergoline, prior to being in August 2032 - no symptoms. 2. close interval - iron supplements self DC - encouraged self-care 3. FOB Guido (as is first son, Guido the 5th) - in the [employer], shore duty, no risk of deployment this - support system is in [place], but visit with them was more stressful than being away. 4. TSH wnl, T4 / T3 increased with initial labs -Normal TSH in second trimester. 5. Depression -h/o PTSD, suicide attempt at 16. Stopped counselling 2 years ago, restarted recently. -Mood precautions, plan in place if mood worsens. -Mood greatly improved with sertraline and counseling. Currently on 150mg. Pre- Weight: 135lb BMI: 24.57 Blood type: O+ Rh: Postitive Antibody: Negative CBC: PLT 291 HCT: 40.5 HGB 13.2 RUB: NON immune VZV: Immune HBsAg: Negative HepC: NR RPR/AB-EIA: NR HIV: NR PAP: normal (12/04/21 in [place])requested 02/11 GC/CT: Negative HSV: denies Genetic testing: Quad screen Normal Covid: vaccinated Flu:completed this season FAS: Placenta: Anterior without previa, 3VC, 341g, 60%. 50gm OGCT: 94 TDAP: 05/13 Breast Pump:05/13 3rd trimester H/H 11.0/34.7 PLT 201 GBS: neg Delivery plan: Contraception:Considering partner vasectomy versus control. Unsure what she would use. - HPI Current EDU 07/29/23 Gestation 37 Weeks and 0 Days 2 Vital Signs Temperature 98.2 F 07/07/23 23:10 Heart Rate 91 07/07/23 23:10 Respiratory Rate 17 07/07/23 23:10 Blood Pressure 131/75 H 07/07/23 23:10 O2 Saturation 99 07/07/23 23:10 Temperature 98.4 F 07/08/23 03:55 Heart Rate 80 07/08/23 03:55 Respiratory Rate 17 07/07/23 23:10 Blood Pressure 96/53 L 07/08/23 03:55 O2 Saturation 99 07/08/23 03:55 If not protocol: Oxygen Flow, liters/minute - NST Procedure NST Procedure Start Time 11:41 Stop Time 12:20 Meds/Allgy - Home Medications Home Medications: Ambulatory Orders Medication Instructions Recorded Confirmed Pnv No.95/Ferrous Fum/Folic AC 1 each PO DAILY 06/23/23 07/08/23 [ Tablet] Sertraline [Zoloft] 150 mg PO DAILY 06/23/23 07/08/23 - Allergies Allergies/Adverse Reactions: Allergies Allergy/AdvReac Type Severity Reaction Status Date / Time No Known Drug Allergies Allergy Verified 06/18/23 09:28 Physical - Abdominal Exam Vital Signs: Temp Pulse Resp BP Pulse Ox O2 Flow Rate 98.4 F 80 17 96/53 L 99 07/08/23 03:55 07/08/23 03:55 07/07/23 23:10 07/08/23 03:55 07/08/23 03:55 - Monitoring Strip Review: positive: Category I - Presentation Presentation: positive: Vertex - Vaginal Exam Dilation (in cm): 2 Effacement (%): 50 Station: positive: -2 - Speculum Exam Speculum Exam Performed: positive: No Plan for Labor - Plan For Labor I expect patient to be DC'd or transferred within 96 hours.: Yes Plan for Labor: 22 yo with: - preeclampsia without severe features - GBS neg - Close interval - Rubella non immune Plan for IOL with misoprostol. Preeclampsia labs obtained in triage yesterday and wnl (exception of pr:cr 0.3). Monitor blood pressures and may repeat labs as necessary. GBS neg. Pain management per patient request.
[2023-07-08] MEDS ORDERED: SERTRALINE 50 MG TABLET PO SCH (09:00)
[2023-07-08] MEDS ORDERED: CALCIUM CARBONATE CHEW 500 MG TABLET PO PRN (09:04)
[2023-07-08] MEDS ORDERED: LABETALOL 20 MG/4 ML SYRINGE IVP PRN ×3 (09:04)
[2023-07-08] MEDS ORDERED: diphenhydrAMINE INJ 50 MG/ML VIAL IVP PRN ×2 (09:04→21:07)
[2023-07-08] MEDS ORDERED: ONDANSETRON 4 MG/2 ML VIAL IVP PRN ×2 (09:04→21:07)
[2023-07-08] MEDS ORDERED: TERBUTALINE 1 MG/ML VIAL SUBQ PRN (09:04)
[2023-07-08] MEDS ORDERED: METOCLOPRAMIDE 10 MG/2 ML VIAL IVP PRN (09:04)
[2023-07-08] MEDS ORDERED: hydrALAZINE INJ 20 MG/ML VIAL IVP PRN ×2 (09:04)
[2023-07-08] MEDS ORDERED: fentaNYL 100 MCG/2 ML VIAL IVP PRN (09:04)
[2023-07-08] MEDS ORDERED: ACETAMINOPHEN 500 MG TABLET PO PRN (09:04)
[2023-07-08] MEDS ORDERED: NIFEdipine 10 MG CAPSULE PO PRN (09:04)
[2023-07-08] MEDS ORDERED: FAMOTIDINE 20 MG/2 ML VIAL IVP SCH (10:00)
--- NOTE | 2023-07-08 17:58 | PROVIDER PROGRESS NOTE ---
Labor Progress Note - Uterine Monitoring Uterine Monitoring Mode: positive: External toco Contraction Frequency (min/apart): 1-2.5 Contraction Intensity: positive: Moderate Uterine Resting Tone: positive: Soft - Monitoring Monitor Mode: positive: External ultrasound Heart Rate Baseline: 135 Accelerations: positive: Present, 15x15 Decelerations: positive: None Strip Review: positive: Category I - Vaginal Exam Dilation (in cm): 4 Effacement (%): 70 Station: -2 Cervical Position: Midposition - Labor Progress Note Labor Progress Note/Additional Text: Shared decision making used for options for further labor augmentation. Patient agreeable to AROM. Moderate amount of clear fluid. Pain intensified shortly after AROM and patient desires Nitrous and discusses with nursing team she will likely desiring an epidural in the next hour or so.
[2023-07-08] MEDS: LACTATED RINGERS 500 ML IV PRN (18:38)
[2023-07-08] MEDS ORDERED: ROPIVACAINE 0.2% 200 MG/100 ML BAG EP ONE (18:57)
[2023-07-08] MEDS ORDERED: LIDOCAINE 2%-EPI 1:100000 20 ML MDV ONE (18:57)
--- NOTE | 2023-07-08 19:24 | PROVIDER PROGRESS NOTE ---
Subjective - Prog Note Date Prog Note Date: 07/08/23 Prog Note Time: 19:00 - Subjective Subjective: called because they thought pateint was ready to deliver soon. using nitrous. very uncomfortable. after a few contractions, once I got ready, I checked her and still only 5 cm and posterior. after some time laboring she was about 6 cm, less posterior. I left room when SALES AND MARKETING MANAGER arrived to do epidural. will reassess when he is finished. anticipate she will deliver soon. tracing reassuring. Objective - Lab Results Other Labs: Lab Results x24hrs 07/07/23 Range/Units 23:45 Blood Type O POSITIVE Antibody Screen NEGATIVE
[2023-07-08] MEDS ORDERED: LIDOCAINE-MPF 2% 5 ML VIAL ONE (19:39)
[2023-07-08] MEDS ORDERED: GENTAMICIN IV ONE (20:09)
[2023-07-08] MEDS ORDERED: SODIUM CHLORIDE 0.9% IV ONE (20:09)
[2023-07-08] MEDS: AMPICILLIN 2 GM in SODIUM CHLORIDE 0.9% MINIBAG 100 ML IV SCH (20:28)
--- NOTE | 2023-07-08 20:41 | PROVIDER PROGRESS NOTE ---
Labor Progress Note - Uterine Monitoring Uterine Monitoring Mode: positive: External toco Contraction Frequency (min/apart): 3 Contraction Intensity: positive: Moderate to strong, Strong Uterine Resting Tone: positive: Soft - Monitoring Monitor Mode: positive: External ultrasound Heart Rate Variability: positive: Moderate (6-25 bmp) Accelerations: positive: Present, 15x15 Decelerations: positive: None Strip Review: positive: Category I - Vaginal Exam Dilation (in cm): 9 Station: 2 - Labor Progress Note Labor Progress Note/Additional Text: fever to 101. maternal and tachycardia. discussed with pateint and then with peds. start amp and gent. likely will deliver before too much effect but will see.
[2023-07-08] MEDS ORDERED: ROPIVACAINE 0.2% 200 MG/100 ML BAG EP PRN (21:07)
[2023-07-08] MEDS ORDERED: NALBUPHINE 10 MG/ML AMP IVP PRN (21:07)
--- NOTE | 2023-07-08 21:07 | ANESTHESIA ---
Pre-Anesthesia VS, & Labs - Diagnosis desires labor epidural; IOL, PRE ECLAMPSIA WITHOUT SEVERE FEATURES - Procedure PLACEMENT OF LABOR EPIDURAL Vital Signs: Temp Pulse Resp BP Pulse Ox O2 Flow Rate 36.7 C 70 16 103/53 L 96 07/08/23 07:00 07/08/23 07:00 07/08/23 07:00 07/08/23 07:00 07/08/23 07:00 Height: 5 ft 4 in Weight (kg): 69.49 kg Body Mass Index: 26.3 BMI Classification: Overweight - NPO Last Fluid Intake: CURRENTLY - Is Patient ?: Yes - Lab Results Current Lab Results: Laboratory Tests 07/07/23 23:45: Blood Type O POSITIVE, Antibody Screen NEGATIVE Lab results reviewed: Yes Home Medications and Allergies Active Medications Acetaminophen (Acetaminophen 500 Mg Tablet) 1,000 mg PO Q8H PRN PRN Reason: Mild Pain or Fever>38C(100.4F) Calcium Carbonate/Glycine (Calcium Carbonate Chew 500 Mg Tablet) 1,000 mg PO Q6HR PRN PRN Reason: Heartburn Carboprost Tromethamine (Carboprost Tromethamine 250 Mcg/Ml Vial) 250 mcg IM Q15M PRN PRN Reason: Step 4: Hemorrhage protocol Diphenhydramine HCl (Diphenhydramine Inj 50 Mg/Ml Vial) 25 mg IVP Q6H PRN PRN Reason: Allergy Symptoms Famotidine (Famotidine 20 Mg/2 Ml Vial) 20 mg IVP DAILY COTY Fentanyl (Fentanyl 100 Mcg/2 Ml Vial) 50 mcg IVP Q1H PRN PRN Reason: Severe Pain (score 7-10) Hydralazine HCl (Hydralazine Inj 20 Mg/Ml Vial) 5 - 10 mg IVP Q20M PRN; Protocol PRN Reason: SBP> or= 160 OR DBP> or= 110 Hydralazine HCl (Hydralazine Inj 20 Mg/Ml Vial) 10 mg IVP .ONCE PRN; Protocol PRN Reason: SBP> or= 160 OR DBP> or= 110 Oxytocin/Sodium Chloride (Pitocin/Sodium Chloride) 500 mls @ 999 mls/hr IV PRN PRN; Protocol PRN Reason: POST- HEMORR PREVENTION Stop: 07/12/23 23:04 Tranexamic Acid (Tranexamic 1,000 Mg/100ml-Nacl) 1,000 mg in 100 mls @ 600 mls/hr IV .ONCE PRN PRN Reason: EBL >1200mL and within 3hr Stop: 07/12/23 23:13 Lactated Ringer's (Lr) 500 mls @ 999 mls/hr IV PRN PRN PRN Reason: NEEDED PER PROVIDER ORDERS Last Infusion: 07/08/23 19:15 Dose: Infused Ampicillin Sodium 2 gm/ Sodium (Chloride) 100 mls @ 100 mls/hr IV Q6H [facility] Last Admin: 07/08/23 20:28 Dose: 100 mls/hr Gentamicin Sulfate 305 mg/ (Sodium Chloride) 107.625 mls @ 100 mls/hr IV ONCE ONE Stop: 07/08/23 21:13 Labetalol HCl (Labetalol 20 Mg/4 Ml Syringe) 20 - 80 mg IVP Q10M PRN; Protocol PRN Reason: SBP> or= 160 OR DBP> or= 110 Labetalol HCl (Labetalol 20 Mg/4 Ml Syringe) 20 mg IVP .ONCE PRN; Protocol PRN Reason: SBP> or= 160 OR DBP> or= 110 Labetalol HCl (Labetalol 20 Mg/4 Ml Syringe) 20 - 40 mg IVP Q10M PRN; Protocol PRN Reason: SBP> or= 160 OR DBP> or= 110 Lidocaine HCl (Lidocaine 1% 20 Ml Mdv) 20 ml ID .ONCE PRN PRN Reason: PERINEAL REPAIR Stop: 07/12/23 23:13 Methylergonovine Maleate (Methylergonovine 0.2 Mg/Ml Vial) 0.2 mg IM .ONCE PRN PRN Reason: Step 2: Hemorrhage protocol Stop: 07/12/23 23:13 Misoprostol (Misoprostol 200 Mcg Tablet) 800 mcg BC .ONCE PRN PRN Reason: Step 3: Hemorrhage protocol Stop: 07/12/23 23:13 Misoprostol (Misoprostol 100 Mcg Tablet) 25 mcg BC Q4HR [facility] Last Admin: 07/08/23 12:49 Dose: 25 mcg Nifedipine (Nifedipine 10 Mg Capsule) 10 - 20 mg PO Q20M PRN; Protocol PRN Reason: SBP> or= 160 OR DBP> or= 110 Ondansetron HCl (Ondansetron 4 Mg/2 Ml Vial) 4 mg IVP PRN PRN PRN Reason: Nausea / Vomiting Oxytocin (Oxytocin 10 Unit/Ml Vial) 10 unit IM .ONCE PRN PRN Reason: Step one: If no IV access Stop: 07/12/23 23:13 Multivit/Folic Acid/Iron ( Vitamin Tablet) 1 tab PO DAILY COTY Sertraline HCl (Sertraline 50 Mg Tablet) 150 mg PO DAILY COTY Sertraline HCl (Sertraline 50 Mg Tablet) 150 mg PO DAILY COTY Sodium Chloride (Sodium Chloride Flush 0.9% 10 Ml Syringe) 10 ml IVP 0100,0900,1700 COTY Sodium Chloride (Sodium Chloride Flush 0.9% 10 Ml Syringe) 10 ml IVP PRN PRN PRN Reason: NEEDED PER PROVIDER ORDERS Terbutaline Sulfate (Terbutaline 1 Mg/Ml Vial) 0.25 mg SUBQ .ONCE PRN PRN Reason: Tachystole Pnv No.95/Ferrous Fum/Folic AC [ Tablet] 1 each PO DAILY 06/23/23 Sertraline [Zoloft] 150 mg PO DAILY 06/23/23 Allergies/Adverse Reactions: Allergies Allergy/AdvReac Type Severity Reaction Status Date / Time No Known Drug Allergies Allergy Verified 06/18/23 09:28 Anes History & Medical History - Anesthetic History Anesthesia Complications: reports: No previous complications Family history of Anesthesia Complications: Denies - Medical History Cardiovascular: reports: None Pulmonary: reports: None Gastrointestinal: reports: None Urinary: reports: None Neuro: reports: None Smoking Status: Never smoker Psychosocial: reports: No issues indicated - Obstetrical History : 2 Parity: 1 Exam General: Alert, Moderate distress Dental: WNL Mouth Openin Fingerbreadth Neck Mobility: Normal Mallampati classification: II Thyromental Distance: less than 4 cm Plan Anesthesia Type: Epidural Consent for Procedure(s) Verified and Reviewed: Yes Code Status: Attempt Resuscitation ASA classification: 2-Mild systemic disease Is this case an emergency?: No
[2023-07-08] MEDS: ACETAMINOPHEN 500 MG TABLET PO SCH (22:27)
[2023-07-08] MEDS: IBUPROFEN 600 MG TABLET PO SCH (22:28)
[2023-07-08] MEDS: SERTRALINE 50 MG TABLET PO SCH (22:29)
--- NOTE | 2023-07-08 23:46 | DELIVERY NOTE ---
Delivery Note - Labor Labor: positive: Augmented by ARM - Infant Delivery Method Delivery Method: positive: Spontaneous vaginal delivery - Cervical Ripening Method Cervical Ripening Method: positive: Misoprostil - Presentation Presentation: positive: Vertex, STACY - left occiput anterior - Nuchal Cord Nuchal Cord: positive: Present - Amniotic Fluid Description Amniotic Fluid Description: positive: Clear - Episiotomy Type Episiotomy Type: positive: None - Laceration Laceration: positive: 1st degree, Perineal - Suture Suture Type: positive: Vicryl Suture Size: positive: 3-0 - Delivery Outcome Delivery Outcome: positive: Livebirth - [place]: positive: Placed in direct skin contact with mother, Bulb syringe, Stimulated, [place] used [place] sex: positive: Female - Cord Cord: positive: 3 vessels - Placenta Placenta: positive: Intact - Estimated Blood Loss Estimated Blood Loss (in cc): 200 - Post Delivery Events Post Delivery Events: positive: No post delivery events - Delivery Comments (Free Text/Narrative) Delivery Comments (Free Text/Narrative): This 22 year old, , @ 37 weeks gestation by LMP and confirmed by first trimester ultrasound presented to L&D @ 0000 on 07/07/2022 for medical induction of labor for preeclampsia without severe features. Cervix was 2/50/-2 and confirmed vertex. FHR pattern demonstrated 140 baseline in a category 1 pattern. Total doses of 25mcg misoprostol x4. Normal labor course. AROM @ 1714 and a moderate amount of clear fluid noted. Epidural placed upon maternal request. Labor T-max 38.4 with associated elevation maternal (110's) and heart rates (160's). Chorioamnioonitis diagnosed and IV antibiotics therapy initiated. Ampililin 2g infused prior to delivery. Patient progressed to complete/complete @ 2105. : Normal SVB of a 2968gm female on 07/08/23 @ 2117. Nuchal cord x1. The was placed on maternal abdomen, stimulated, dried and placed skin to skin. Apgars 8 @ 1 min and 9 @ 5 min. Pitocin administered via IV for hemostasis. The umbilical cord was allowed to stop pulsating at which time it was doubly clamped by SNM and cut by FOB. 3VC. Cord blood was obtained. Fundal massage and gentle cord traction applied for active management of the third stage. Placenta delivered spontaneously and intact @ 2125. EBL 200cc. Fourth stage: Uterine fundus firm and there is no excessive bleeding. The perineum, vagina, and cervix were inspected. 1st degree perineal laceration re paired in standard fashion under sterile conditions with 3-0 rapide. Vaginal and rectal examination following repair. Tissues well approximated. Skin to skin and initiated. Family boding well. Both mother and baby are in stable condition.
--- NOTE | 2023-07-09 11:22 | PHARMACY PROGRESS NOTE ---
- Best Possible Medication History Admit Date and Time: 07/08/23 1738 Processed by: Pharmacy Medications reviewed in ED?: No Medication History completed: Yes Patient Interview: Completed As the person ultimately responsible for medication therapy, providers are able to order a medication from an existing home medication list in [facility] via the "Reconcile Routine" prior to Confirmation of that medication by office support clerk. Such practice is discouraged except when the physician, in their clinical judgment, deems that a medical need exists for a medication without regard to previous use.
[2023-07-09] MEDS: DOCUSATE SODIUM 100 MG CAPSULE PO SCH (12:36)
[2023-07-09] MEDS: PRENATAL VITAMIN TABLET PO SCH (12:37)
--- NOTE | 2023-07-09 19:41 | PROVIDER PROGRESS NOTE ---
<Aby Valdez - Last Filed: 07/09/23 19:42> Subjective - Prog Note Date Prog Note Date: 07/09/23 Prog Note Time: 19:39 - Subjective Pt reports feeling: Improved Subjective: 22 yo pp day 1. Doing well physically and mentally. Pain well managed without narcotics. Bleeding minimal. No headaches, RUQ pain or visual disturbances. BP 125/76. No elevated BPs. Reviewed pre-E precautions. Desires discharge to home later tomorrow. Objective - Vital Signs/Intake & Output Vital Signs: Vital Signs x48h Temp Pulse Resp BP 07/09/23 16:38 98.0 C H 73 17 125/76 07/09/23 16:30 98.0 C H 73 17 125/76 07/09/23 12:35 37.2 C 82 16 113/57 L Intake & Output: Intake & Output 07/06/23 07/07/23 07/08/23 07/09/23 23:59 23:59 23:59 23:59 Intake Total 500 Output Total 200 550 Balance 300 -550 <Minoo Navas - Last Filed: 07/09/23 21:15> Objective - Vital Signs/Intake & Output Vital Signs: Vital Signs x48h Temp Pulse Resp BP Pulse Ox 07/09/23 19:47 97.9 F 69 121/58 L 99 07/09/23 16:38 208.4 F H 73 17 125/76 07/09/23 16:30 208.4 F H 73 17 125/76 07/09/23 12:35 98.9 F 82 16 113/57 L Intake & Output: Intake & Output 07/06/23 07/07/23 07/08/23 07/09/23 23:59 23:59 23:59 23:59 Intake Total 500 Output Total 200 550 Balance 300 -550 ABX Reporting Has patient been on IV antibiotics over the past 48 hours?: Yes Sepsis Event Note (H) - Evaluation Current Stage of Sepsis: Ruled out Possible source of Sepsis: positive: Genitourinary Confirmed Source and Organism (if known) of Sepsis: chorioamnionitis - now delivered and ruled out. Sepsis Associated Organ Dysfunction: none - Sepsis Criteria Sepsis Criteria: Recorded Temperature greater than 38.3C or Less than 36C, Recorded Heart Rate greater than 90 bpm Assessment/Plan - Problem List (1) Vaginal delivery Impression: routine post op care now. doing well. breast feeding going well. (2) Chorioamnionitis, delivered, current hospitalization Impression: no evidence of further infection. received one dose of ampicillin before delivery. gent ordered but she delivered before it was hung. baby doing well also with no evidence of sepsis. CBC ordered for tomorrow am. (3) Not immune to rubella Impression: MMR ordered. (4) Gestational hypertension affecting second Impression: no further high bps. no evidence of preeclampsia. I have reviewed Aby's note and have seen and examined the patient myself.
[2023-07-10 06:08] LABS: BASOPHILS # (AUTO) 0.1 10^3/uL (0.0-0.1); BASOPHILS % (AUTO) 0.5 %; EOSINOPHILS # (AUTO) 0.2 10^3/uL (0.0-0.7); EOSINOPHILS % (AUTO) 1.6 %; HCT - HEMATOCRIT 34.9 % (37.0-47.0); HGB - HEMOGLOBIN 10.7 g/dL (12.0-16.0); LYMPHOCYTES # (AUTO) 3.1 10^3/uL (1.5-3.5); LYMPHOCYTES % (AUTO) 24.9 %; MEAN CORPUSCULAR HEMOGLOBIN 27.2 pg (27.0-31.0); MEAN CORPUSCULAR HGB CONC 30.7 g/dL (32.0-36.0); MEAN CORPUSCULAR VOLUME 88.8 fL (81.0-99.0); MEAN PLATELET VOLUME 10.4 fL (7.9-10.8); MONOCYTES # (AUTO) 0.7 10^3/uL (0.0-1.0); MONOCYTES % (AUTO) 5.8 %; NEUTROPHILS # (AUTO) 8.2 10^3/uL (1.5-6.6); NEUTROPHILS % (AUTO) 66.1 %; PLT - PLATELET COUNT 176 10^3/uL (130-450); RED BLOOD COUNT 3.93 10^6/uL (4.20-5.40); RED CELL DISTRIBUTION WIDTH 13.8 % (12.0-15.0); WHITE BLOOD COUNT 12.4 x10^3/uL (4.8-10.8)
[2023-07-10 09:41] VITALS: BP 122/69; O2SAT 99
--- NOTE | 2023-07-10 10:58 | Discharge Plan ---
Discharge Plan Problem Reviewed?: Yes Disposition: Home, Self Care Condition: Good Diet: Regular Activity Restrictions: Activity as Tolerated Shower Restrictions: No Driving Restrictions: Yes (Drive when comfortable without pain medications) Weight Bearing: Full Weight Instruction Topics: Vaginal After, Depression , Preeclampsia Additional Instructions or Follow Up instructions: Follow up [facility] 07/16/23 9150 No Smoking: If you smoke, Please STOP! Call for help.
--- NOTE | 2023-07-10 11:03 | DISCHARGE SUMMARY ---
Discharge Summary Admit Date: 07/08/23 Discharge Date: 07/10/23 Discharging Provider: Ana Maria Gtz DO Code Status: Attempt Resuscitation Condition at Discharge: Good Discharge Disposition: 01 Home, Self Care Discharge Facility Name: [facility] - DIAGNOSES Admission Diagnoses: 22yo with IUP at 37w IOL for preeclampsia - HPI History of Present Illness: 22yo admitted 07/08/23 at 37w for IOL for preeclampsia. - HOSPITAL COURSE Hospital Course: 22yo admitted 07/08/23 at 37w for IOL for preeclampsia. She was 2cm and induced with misoprostol x4 doses. AROM. Epidural placed. She was diagnosed with chorioamnionitis just prior to delivery and ampicillin/gentamicin was started. Uncomplicated 07/08/23. First degree laceration repaired. Recovering appr opriately. Comfortable and feels ready to go home PPD#2. Appropriate lochia. Ambulating. Voiding. Tolerating regular diet. well. Mood is good. BP has been normal. Afebrile. No preeclampsia symptoms. MMR given prior to discharge for rubella-NI. , PPD, preeclampsia precautions reviewed and all questions answered. - ALLERGIES Allergies/Adverse Reactions: Allergies Allergy/AdvReac Type Severity Reaction Status Date / Time No Known Drug Allergies Allergy Verified 06/18/23 09:28 - MEDICATIONS Home Medications: Ambulatory Orders Medication Instructions Recorded Confirmed Pnv No.95/Ferrous Fum/Folic AC 1 each PO DAILY 06/23/23 07/08/23 [ Tablet] Sertraline [Zoloft] 150 mg PO DAILY 06/23/23 07/08/23 - PHYSICAL EXAM AT DISCHARGE General Appearance: positive: No acute distress Eyes Bilateral: positive: EOMI Respiratory: positive: No respiratory distress Cardiovascular: positive: Other (Regular rate) Abdomen: positive: Non-tender Back: positive: Nml inspection Skin: positive: Color nml Extremities: positive: Non-tender Neurologic/Psychiatric: positive: Oriented x3 - LABS Result Diagrams: 07/10/23 05:43 - SEPSIS Current Stage of Sepsis: Ruled out Possible source of Sepsis: Genitourinary Sepsis Criteria: Recorded Temperature greater than 38.3C or Less than 36C, Recorded Heart Rate greater than 90 bpm - QUALITY (Female Hip Fx Only) Was patient sent home on osteoporosis medication?: No - FOLLOW UP Follow Up: 07/15/23 1345 [facility] - TIME SPENT Time Spent in Discharge (Minutes): 25
[2023-07-10] MEDS: MEASLES,MUMPS & RUBELLA VACC 0.5 ML VIAL SUBQ ONE (11:41)
[2023-07-10] MEDS ORDERED: MEASLES,MUMPS & RUBELLA VACC 0.5 ML VIAL SUBQ ONE (12:00)
--- NOTE | 2023-07-10 15:49 | Labor Flowsheet ---
Labor Flowsheet Datetime Report Generated by CPN: 07/10/2023 15:49 Datetime: 07/10/2023 09:03 VITAL SIGNS NBP Sys/Lisa/Mean (mmHg): 122 : 69 : 81 Pulse: 88 Datetime: 07/10/2023 04:59 SpO2 (%): 100 Datetime: 07/09/2023 00:16 Membranes Ruptured Date/Time: 07/08/2023 17:14 Datetime: 07/08/2023 21:18 Stage of : Datetime: 07/08/2023 21:15 LaborFlag: Labor Datetime: 07/08/2023 21:09 UTERINE ACTIVITY Monitor Mode: External Frequency (min): 2-3 Quality: Moderate Duration (sec): 80-110 Pattern: Normal: <= 5 Contractions in 10 Minutes Resting Tone (Palpate): Relaxed ASSESSMENT A Monitor Mode: Telemetry FHR Baseline Rate : 155 Variability: Moderate 6-25 bpm Accelerations: 15X15 Decelerations: Early; Variable Category: Category II Datetime: 07/08/2023 21:08 STAGE 2 Pushing: Coached on Pushing Pushing Position: Pushing with Contractions; Pushing Lithotomy Pushing Progress: Presenting Part Visible Datetime: 07/08/2023 21:06 VAGINAL EXAM Dilatation (cm): 10.0 Effacement (%): 100 Station: 2 Datetime: 07/08/2023 21:05 Patient Care Comments: Pt positioned for SVE COMMUNICATION Communication: Provider at Bedside Provider Notified (Name): Aby B. [employer]ORATORY MANAGER, A. Alex, CNM Datetime: 07/08/2023 20:46 Patient Position/Activity: Left Extreme; Semi-Fowlers Datetime: 07/08/2023 20:36 Temperature (C): 38.2 Datetime: 07/08/2023 20:29 FHR Baseline Changes: Tachycardia Datetime: 07/08/2023 20:27 MEDICATIONS Antibiotics: Ampicillin IV 2 Gm Datetime: 07/08/2023 19:59 Actions for Decelerations: Provider Notified; Other Datetime: 07/08/2023 19:48 Exam by: Dr. Navas Datetime: 07/08/2023 19:40 Medication Comments: lidocaine admin by DIRECTOR ENVIRONMENTAL via epidural Datetime: 07/08/2023 19:31 Epidural Procedure: Loading Dose Datetime: 07/08/2023 19:30 Comments: unable to assess d/t maternal movement, positioned for epidural placement Datetime: 07/08/2023 19:10 Epidural Positioning: Sitting Datetime: 07/08/2023 19:02 PROCEDURE TIME OUT Procedure Verify: Correct Patient Identity; Correct Side and Site are Marked; Accurate Procedure Co nsent Form; Agreement on Procedure to be Done; Correct Patient Position; Relevant Images and Results are Properly Labeled and Displayed; Addressed Need to Administer Antibiotics or Fluids for Irrigation ; Safety Precautions Based on Patient History or Medication Use ANESTHESIA Anesthesia Plans: Epidural Anesthesia Comments: Juanjose Oliva CRNA at bedside Datetime: 07/08/2023 18:30 Monitor Interventions for UA: [place] Adjusted Monitor Interventions for FHR: Ultrasound Adjusted Datetime: 07/08/2023 18:28 Cervix, Position: Posterior Datetime: 07/08/2023 18:26 Communication Comments: dr navas at bedside Datetime: 07/08/2023 18:24 Vaginal Exam Comments: unable to determine dilation due to patient discomfort. Datetime: 07/08/2023 18:20 PATIENT CARE IV/Blood Work: IV Bolus Started Datetime: 07/08/2023 18:00 Pain Assessment Comments: Nitrous oxide setup and patient educated on safe use. Datetime: 07/08/2023 17:51 PAIN Pain Scale: 5 Datetime: 07/08/2023 17:14 Membrane Status: Ruptured Membranes Rupture Method: Artificial Amniotic Fluid Color: Clear Amniotic Fluid Amount: Moderate Amniotic Fluid Odor: None Datetime: 07/08/2023 12:50 Cervical Ripening Agents: Cytotec @ Datetime: 07/08/2023 12:43 Vaginal Bleeding: None Datetime: 07/08/2023 06:58 Contraction Comments: coupling and tripling of UCs noted Datetime: 07/08/2023 06:57 Notification Reason: Status Update; Labor Status; Uterine Activity; Pain; Maternal Vital Sign Can e Datetime: 07/08/2023 06:25 Pain Presence: Intermittent Pain Type: Contraction Datetime: 07/08/2023 03:55 Headache: Denies Comfort Measures: Breathing/Relaxation Datetime: 07/08/2023 02:33 I/O Interventions: Up to BR Datetime: 07/08/2023 02:31 Respirations: 16 Datetime: 07/07/2023 23:48 TEACHING Instructional Method: Verbal Plan of Care: Plan of Care Discussed; Induction Labor/Induction: Cervical Ripening Pain Management: IV Narcotics; Epidural; PRN Medications; Pain Scale/Goals; Comfort Measures Medications: Cervical Ripening Related: Common Discomforts of ; Hydration; Activity and Rest Datetime: 07/07/2023 23:18 Pain Goal: 8 MATERNAL ASSESSMENT Level of Consciousness: Alert DTR's/Clonus: No Clonus Breath Sounds, Left: Clear and Equal Breath Sounds, Right: Clear and Equal Nausea/Vomiting: Denies RUQ Epigastric Pain: Denies Datetime: 06/04/2023 00:14 Provider Reviewed Strip: Yes
== END 2023-07-10 13:15 | disposition home or self-care (01) | DRG 805 ==
LOC: WFO 22:59 → FBP 23:01 → WFO 07-08 17:32 → FBP 07-08 17:33
PROVIDERS: ADMIT Obstetrics & Gynecology; ATTEND Obstetrics & Gynecology
PROC: 3E0DXGC Introduction of Other Therapeutic Substance into Mouth and Pharynx, External Approach (ICD-10-PCS; principal; 2023-07-08)
PROC: 10E0XZZ Delivery of Products of Conception, External Approach (ICD-10-PCS; 2023-07-08)
PROC: 10907ZC Drainage of Amniotic Fluid, Therapeutic from Products of Conception, Via Natural or Artificial Opening (ICD-10-PCS; 2023-07-08)
PROC: 0HQ9XZZ Repair Perineum Skin, External Approach (ICD-10-PCS; 2023-07-08)
DX: O14.04 Mild to moderate pre-eclampsia, complicating childbirth (principal); O41.1230 Chorioamnionitis, third trimester, not applicable or unspecified; Z37.0 Single live birth; O69.81X0 Labor and delivery complicated by cord around neck, without compression, not applicable or unspecified; O70.0 First degree perineal laceration during delivery; O99.344 Other mental disorders complicating childbirth; F32.A Depression, unspecified; Z3A.37 37 weeks gestation of pregnancy; O76 Abnormality in fetal heart rate and rhythm complicating labor and delivery
CPT/HCPCS: 36415; 59409; 85025; 86850; 86900; 86901; A9270; J1580; J7120

== ENCOUNTER 2023-07-15 08:00 | Outpatient (CLI) | payer OTHER, MEDICAID ==
[2023-07-15 22:03] LABS: BACTERIAL VAGINOSIS DNA NEGATIVE (NEGATIVE); CANDIDA GLABRATA DNA NEGATIVE (NEGATIVE); CANDIDA GROUP DNA POSITIVE (NEGATIVE); CANDIDA KRUSEI DNA NEGATIVE (NEGATIVE); TRICHOMONAS VAGINALIS DNA NEGATIVE (NEGATIVE)
== END 2023-07-15 23:59 | disposition home or self-care (01) ==
LOC: LAB.WC 08:00
PROVIDERS: ATTEND Obstetrics & Gynecology
DX: L29.2 Pruritus vulvae (principal)
CPT/HCPCS: 81514